=== PATIENT | male | born 1945 | race Caucasian/White ===

== ENCOUNTER 2024-12-13 06:51 | Emergency (ER) | payer MEDICARE, OTHER ==
[2024-12-13] MEDS ORDERED: TETRACAINE HCL 0.5% 4ML OPTH ONE (07:13)
[2024-12-13] MEDS ORDERED: FLUORESCEIN SODIUM 1 MG/WRAP ONE (07:14)
--- NOTE | 2024-12-13 07:49 | EDPHYS ---
Physician Documentation [facility] Name: Todd Coelho Age: 79 yrs Sex: Male : 1945 Arrival Date: 12/13/2024 Time: 06:51 Bed 13 Private MD: ED Physician Edenilson Lowry HPI: 12/13 07:17 This 79 yrs old Male presents to ER via Ambulatory with complaints of Foreign Body In rt Eye. 07:17 Patient presents to the ED with foreign body sensation to the right eye. Patient states rt that yesterday afternoon, he was outside when the wind caught something hit his eye, unsure what it was. States that he thought he removed it but still has foreign body sensation, denies other acute complaints at this time, symptoms are mild in severity, no other aggravating or alleviating factors.. Historical: - Allergies: 06:56 No Known Allergies; ha1 - PMHx: 06:56 None; ha1 - Immunization history:: Adult Immunizations up to date. - Infectious Disease History:: Denies. - Social history:: Smoking status: Patient denies any tobacco usage or history of. ROS: 07:17 Constitutional: Negative for fever, chills, and weight loss, MS/Extremity: Negative for rt injury and deformity, Skin: Negative for injury, rash, and discoloration, Neuro: Negative for headache, weakness, numbness, tingling, and seizure, 07:17 Eyes: Positive for pain, redness, Exam: 07:48 Constitutional: This is a well developed, well nourished patient who is awake, alert, rt and in no acute distress. Head/Face: Normocephalic, atraumatic. Chest/axilla: Normal chest wall appearance and motion. Nontender with no deformity. No lesions are appreciated. Skin: Warm, dry with normal turgor. Normal color with no rashes, no lesions, and no evidence of cellulitis. MS/ Extremity: Pulses equal, no cyanosis. Neurovascular intact. Full, normal range of motion. Neuro: Awake and alert, GCS 15, oriented to person, place, time, and situation. Cranial nerves II-XII grossly intact. Motor strength 5/5 in all extremities. Sensory grossly intact. Cerebellar exam normal. Normal gait. 07:48 Eyes: Injected conjunctiva of right eye, extraocular muscles are intact, small area of fluorescein uptake just superior to the pupil, eyelids everted, no foreign bodies, Dima sign negative. Vital Signs: 06:57 BP 135 / 85; Pulse 72; Resp 17 S; Temp 97.6(T); Pulse Ox 98% on R/A; Weight 83.91 kg; ha1 Height 6 ft. 3 in. ; 07:59 BP 132 / 74; Pulse 70; Resp 18; Pulse Ox 99% on R/A; ld1 06:57 Body Mass Index 23.12 (83.91 kg, 190.5 cm) ha1 MDM: 07:04 Medical Screening Exam initiated rt 07:48 Differential diagnosis: Corneal abrasion of Foreign body in. Data reviewed: vital rt signs, nurses notes. Counseling: I had a detailed discussion with the patient and/or guardian regarding the historical points, exam findings, and any diagnostic results supporting the discharge/admit diagnosis, the need for outpatient follow up, to return to the emergency department if symptoms worsen or persist or if there are any questions or concerns that arise at home. Response to treatment: the patient's symptoms have markedly improved after treatment. 12/13 07:08 Order name: Eye Tray; Complete Time: 07:18 rt 12/13 07:08 Order name: Fluoresene Opth strip; Complete Time: 07:18 rt Administered Medications: 07:49 Drug: Tetracaine Ophthalmic Drops 0.5 % 1 drops Ophthalmic once Route: Ophthalmic; ld1 Site: right eye; Disposition Summary: 12/13/24 07:48 Discharge Ordered Notes: Location: Home rt Problem: new rt Symptoms: have improved rt Condition: Stable rt Diagnosis - Corneal abrasion of right eye rt Followup: rt - With: Private Physician - When: 2 - 3 days - Reason: Discharge Instructions: - Discharge Summary Sheet rt - Corneal Abrasion rt Forms: - Medication Reconciliation Form rt - Antibiotic Education rt - Prescription Opioid Use rt - Patient Portal Instructions rt - Leadership Thank You Letter rt Prescriptions: - Erythromycin 5 mg/gram (0.5 %) Ophthalmic ointment - apply 1 centimeter OPHTHALMIC route 2-3 times daily for 7 days; 1 Each; rt Refills: 0, Product Selection Permitted Signatures: Hamida Xie RN RN 1 Lisa Alvarado RN RN 1 [place], Edenilson, MD MD rt
--- NOTE | 2024-12-13 07:49 | ER ---
Nurse's Notes [facility] Name: Todd Coelho Age: 79 yrs Sex: Male : 1945 Arrival Date: 12/13/2024 Time: 06:51 Bed 13 Private MD: Diagnosis: Corneal abrasion of right eye Presentation: 12/13 06:57 Chief complaint: Patient states: UNKNOWN FOREIGN BODY IN THE RIGHT EYE SINCE YESTERDAY. ha1 06:57 Coronavirus screen: Client denies travel out of the [place] in the last 14 days. Ebola ha1 Screen: No symptoms or risks identified at this time. Initial Sepsis Screen: Does the patient meet any 2 criteria? No. Patient's initial sepsis screen is negative. Does the patient have a suspected source of infection? No. Patient's initial sepsis screen is negative. 06:57 Method Of Arrival: Ambulatory ha1 08:01 Risk Assessment: Do you want to hurt yourself or someone else? Patient reports no ld1 desire to harm self or others. Onset of symptoms was December 13, 2024. 08:01 Acuity: JOSEMANUEL 4 ld1 Triage Assessment: 06:56 General: Appears uncomfortable, Behavior is calm, cooperative. Pain: Complains of pain ha1 in right eye Pain currently is 7 out of 10 on a pain scale. Quality of pain is described as burning. EENT: Reports FOREIGN BODY IN MY RIGHT EYE. Neuro: Level of Consciousness is awake, alert, obeys commands, Oriented to person, place, time, situation. Cardiovascular: Patient's skin is warm and dry. Respiratory: Airway is patent Respiratory effort is even, unlabored, Respiratory pattern is regular, symmetrical. GI: No signs and/or symptoms were reported involving the gastrointestinal system. Derm: Skin is pink, warm \T\ dry. Musculoskeletal: Circulation, motion, and sensation intact. Range of motion: intact in all extremities. Historical: - Allergies: 06:56 No Known Allergies; ha1 - PMHx: 06:56 None; ha1 - Immunization history:: Adult Immunizations up to date. - Infectious Disease History:: Denies. - Social history:: Smoking status: Patient denies any tobacco usage or history of. Screenin:12 Abuse screen: Denies threats or abuse. Denies injuries from another. Nutritional ha1 screening: No deficits noted. 07:59 [facility] ED Fall Risk Assessment (Adult) History of falling in the last 3 months, ld1 including since admission No falls in past 3 months (0 pts) Confusion or Disorientation No (0 pts) Intoxicated or Sedated No (0 pts) Impaired Gait No (0 pts) Mobility Assist Device Used No (0 pt) Altered Elimination No (0 pt) Score/Fall Risk Level 0 - 2 = Low Risk Oriented to surroundings, Hourly rounding (assess needs \T\ fall precautionary measures) done. Tuberculosis screening: No symptoms or risk factors identified. Assessment: 07:59 General: Appears in no apparent distress. uncomfortable, Behavior is calm, cooperative, ld1 appropriate for age. Pain: Complains of pain in right eye Pain does not radiate. Pain currently is 7 out of 10 on a pain scale. Quality of pain is described as burning, Pain began 1 day ago. Neuro: Level of Consciousness is awake, alert, obeys commands, Oriented to person, place, time, situation. Cardiovascular: Capillary refill < 3 seconds Patient's skin is warm and dry. Respiratory: Airway is patent Respiratory effort is even, unlabored. GI: Abdomen is flat, non-distended. : No signs and/or symptoms were reported regarding the genitourinary system. EENT: Reports pain in right eye. Derm: No signs and/or symptoms reported regarding the dermatologic system. Musculoskeletal: No signs and/or symptoms reported regarding the musculoskeletal system. Vital Signs: 06:57 BP 135 / 85; Pulse 72; Resp 17 S; Temp 97.6(T); Pulse Ox 98% on R/A; Weight 83.91 kg; ha1 Height 6 ft. 3 in. ; 07:59 BP 132 / 74; Pulse 70; Resp 18; Pulse Ox 99% on R/A; ld1 06:57 Body Mass Index 23.12 (83.91 kg, 190.5 cm) ha1 ED Course: 06:54 Patient arrived in ED. [id number] 06:58 Edenilson Lowry MD is Attending Physician. rt 07:59 Hamida Xie, MARIUSZ is Primary Nurse. ld1 07:59 Patient has correct armband on for positive identification. Placed in gown. Call light ld1 in reach. Side rails up X2. Pulse ox on. NIBP on. Door closed. Noise minimized. Warm blanket given. 07:59 No provider procedures requiring assistance completed. Patient did not have IV access ld1 during this emergency room visit. 08:01 Triage completed. ld1 08:01 Arm band placed on right wrist. ld1 Administered Medications: 07:49 Drug: Tetracaine Ophthalmic Drops 0.5 % 1 drops Ophthalmic once Route: Ophthalmic; ld1 Site: right eye; Medication: 07:59 VIS not applicable for this client. ld1 Outcome: 07:48 Discharge ordered by . rt 07:59 Discharged to home ambulatory, ld1 07:59 Condition: stable 07:59 Discharge instructions given to patient, Instructed on discharge instructions, follow up and referral plans. medication usage, Demonstrated understanding of instructions, follow-up care, medications, Prescriptions given X 1, 08:01 Patient left the ED. ld1 Signatures: Hamida Xie, RN RN ld1 Khalida Huff [email or web address] Lisa Alvarado RN RN ha1 Edenilson Lowry MD MD rt
[2024-12-13 08:36] VITALS: TEMP 97.6
[2024-12-13 08:37] VITALS: BP 132/74; O2SAT 99
== END 2024-12-13 08:01 | disposition home or self-care (01) ==
LOC: ER 06:51
DX: S05.01XA Injury of conjunctiva and corneal abrasion without foreign body, right eye, initial encounter (principal)
CPT/HCPCS: 99283